=== PATIENT | female | born 1970 | race Caucasian/White ===

== ENCOUNTER 2017-01-18 16:48 | Inpatient (IN) | payer OTHER ==
[~2017-01-18] VITALS: Ht 172.7 cm; Wt 54.4 kg
[2017-01-18] MEDS ORDERED: ONDANSETRON 4 MG/2 ML VIAL IM PRN (17:30)
[2017-01-18] MEDS ORDERED: MIRALAX 17 GM POWD.PACK PO PRN (17:30)
[2017-01-18] MEDS ORDERED: LORAZEPAM 1 MG TABLET PO PRN ×2 (17:30)
[2017-01-18] MEDS ORDERED: LOPERAMIDE HCL 2 MG CAPSULE PO PRN ×2 (17:30)
[2017-01-18] MEDS ORDERED: LORAZEPAM 2 MG/1 ML VIAL IM PRN (17:30)
[2017-01-18] MEDS ORDERED: BUPRENORPHINE HCL 2 MG TAB.SUBL SL PRN (17:30)
[2017-01-18] MEDS ORDERED: diphenhydrAMINE 50 MG CAPSULE PO PRN (17:30)
[2017-01-18] MEDS ORDERED: CLONIDINE HCL 0.1 MG TABLET PO PRN (17:30)
[2017-01-18] MEDS ORDERED: IBUPROFEN 600 MG TABLET PO PRN (17:30)
[2017-01-18] MEDS ORDERED: MAG HYDROX/AL HYDROX/SIMETH 30 ML LIQUID UDC PO PRN (17:30)
--- NOTE | 2017-01-18 17:30 | NUR ---
PRE ADMISSION 46 year old female from [facility], alert and oriented x4, appears pale in color, verbally responsive, reports is here to get off of oxycodone. Patient reports first time in treatment, reports began taken oxycodone for pain mgmt due to Chrons disease. bp: 102/58 p: 109 t: 98.0 r: 16 o2 sat: 99%. Patient reports allergies to Reglan. Patient was educated regarding unit policies and procedures with good verbal understanding. Dr. Youssef aware of new admission.
--- NOTE | 2017-01-18 18:00 | NUR ---
ADMISSION Patient arrived to unit at 1800, noted with steady gait, patients body search completed by female STEEL WELDER, no contraband found. Patients body assessment completed, noted with small bruise on left A/C due to blood draws from hospitalization one week ago. Patient also with port a cath to right upper chest, placed may 2016. Patient is 5 feet 8 inches and weighs 120lbs. Patient reports past medical history of: Chrons Disease Dx: 2013, depression Dx: 25 years ago, Migraines Dx: "few years ago" , Folic Acid deficiency Dx: 2013, hypothyroidism Dx: "few years ago", bowel resection done November 16. patient reports was prescribed opiate for pain mgmt, reports taking oxycodone 200mg daily for 5 years for pain mgmt. Also was prescribed, bromazepam, unknown amount taken for 5 years. Patient reports she wants to stop taking oxycodone and bromazepam. Reports was hospitalized one week ago in the ER for Chrons disease flare up, reports has last a total of 33 pounds in the past few months, due to chrons disease. Patient brought home medications, all medications were reconciled and input into [employer]. Patient denies any history of seizures. Patient reports any family history of substance abuse. Patients abdomen is soft and non distended, reports having diarrhea. Patient reports receives Remicade infusion every 15 days. patients pupils are equal and reactive to light. Patient endorsed to slot shift supervisor nurse, all pertinent information discussed. will continue to monitor. patient was seen by Dr. Youssef and by Dr. Hines. Will continue to monitor.
[2017-01-18 18:10] LABS: *URINE HCG, QUAL NEGATIVE (NEGATIVE)
[2017-01-18] MEDS ORDERED: FOLI1TAB16 PO (18:14)
[2017-01-18] MEDS ORDERED: AMIT25TA9 PO (18:15)
[2017-01-18] MEDS ORDERED: MIRT15TA7 PO (18:16)
[2017-01-18 18:17] LABS: *AMPHETAMINE, URINE NEGATIVE (NEGATIVE); *BARBITURATE, URINE POSITIVE (NEGATIVE); *CANNABINOID, URINE NEGATIVE (NEGATIVE); *COCCAINE, URINE NEGATIVE (NEGATIVE); *OPIATE, URINE POSITIVE (NEGATIVE); *PHENCYCLIDINE SCREEN,URINE NEGATIVE (NEGATIVE)
[2017-01-18] MEDS ORDERED: TRIM300C24 PO (18:17)
[2017-01-18] MEDS ORDERED: LEVO100T10 PO (18:18)
[2017-01-18] MEDS ORDERED: PANT40TA4 PO (18:18)
[2017-01-18] MEDS ORDERED: SUMA100T PO (18:26)
[2017-01-18] MEDS ORDERED: POTA20TA83 PO (18:28)
[2017-01-18] MEDS ORDERED: GABA100C PO (18:29)
[2017-01-18] MEDS ORDERED: CETI-102 PO (18:42)
[2017-01-18] MEDS ORDERED: D-ME236L5 PO (18:42)
[2017-01-18] MEDS ORDERED: [UNRECOGNIZED DRUG - CODE] TP (18:42)
[2017-01-18] MEDS ORDERED: [UNRECOGNIZED DRUG - CODE] PO (18:42)
[2017-01-18] MEDS ORDERED: LOPE1TAB46 PO (18:42)
[2017-01-18] MEDS ORDERED: KETO5DRO29 OP (18:42)
[2017-01-18 20:00] VITALS: BP 91/52
--- NOTE | 2017-01-18 20:00 | NUR ---
Start of Shift Patient is a 46-year old, female, admitted for Opiates and Benzo Dependence. Pt is allergic to Metoclopramide, on Regular Diet and is Full Code. Pt with history of Colon Resection on 11/16/2016, Crohns Disease, Depression, Migraine, Folic Acid Deficiency, Hypothyroidism, Thyroidectomy and Insomnia. Pt is AAOx4, noted to be weak and with mild anxiety noted. Pt with steady gait and with no open skin noted. Vital signs are stable. With right upper chest Port-a-cath with no access. No seizure history reported. Placed on 5-day Ativan and 5-day Subutex tapers, to start 01/19/2017. Fall, universal, seizure and safety prec in place. Call light within reach. Latest COWS=7, CIWA=6. Will continue to monitor.
[2017-01-18] MEDS: AMITRIPTYLINE HCL 25 MG TABLET PO SCH (20:25)
[2017-01-18] MEDS: DICYCLOMINE HCL 20 MG TABLET PO PRN (20:26)
[2017-01-18] MEDS: MIRTAZAPINE 15 MG TABLET PO SCH (20:26)
--- NOTE | 2017-01-18 20:28 | NUR ---
RN note PRN Bentyl Pt c/o abdominal cramps. Administered Bentyl 20 mg PO as ordered. Will reassess.
[2017-01-18] MEDS ORDERED: LORAZEPAM 1 MG TABLET PO ONE (21:00)
--- NOTE | 2017-01-18 21:30 | NUR ---
RN note reassess Pt verbalized feeling relieved from stomach cramps.
[2017-01-19] VITALS: BP 97/54
[2017-01-19 04:00] VITALS: BP 105/56
--- NOTE | 2017-01-19 07:16 | NUR ---
End of Shift Patient is a 46-year old, female, admitted for Opiates and Benzo Dependence. Pt is allergic to Metoclopramide, on Regular Diet and is Full Code. Pt with history of Colon Resection on 11/16/2016, Crohns Disease, Depression, Migraine, Folic Acid Deficiency, Hypothyroidism, Thyroidectomy and Insomnia. Pt is AAOx4, noted to be weak and with mild anxiety noted. Pt with steady gait and with no open skin noted. Vital signs are stable. With right upper chest Port-a-cath with no access. No seizure history reported. Placed on 5-day Ativan and 5-day Subutex tapers, to start 01/19/2017. Fall, universal, seizure and safety prec in place. Call light within reach. Latest COWS=5, CIWA=4 , slept for 9 hours . Endorsed to AM shift nurse for continuity of care.
--- NOTE | 2017-01-19 07:36 | NUR ---
BEGINNING OF SHIFT Patient endorsement report received from hourly shift manager nurse, all pertinent information discussed. Patient admitted on 01/18/2017, with admitting Dx: opiate/bzo dependence. Patient with past medical history of: Colon Resection on 11/16/2016, Crohns disease Disease, Depression, Migraine, Folic Acid Deficiency, Hypothyroidism, Thyroidectomy and Insomnia. Patient scheduled to begin 5 day Ativan taper and 5 day Subutex taper as ordered, will monitor closely. Per hourly shift manager patient slept for 9 hours, with last cow score of: 5 and last ciwa score of: 4. Pending stool culture. Patient received awake, alert and oriented x4, noted to be weak, safety measures in place. patient with port a cath on right upper chest with no access. Fall and seizure precautions observed and in place. Patient was educated regarding plan of care for the day and medication regimen with good verbal understanding, will continue to monitor closely.
[2017-01-19 07:44] LABS: BASOPHILS % (AUTO) 0.9 % (0.0-2.0); EOSINOPHILS # (AUTO) 0.1 K/uL (0.0-0.7); EOSINOPHILS % (AUTO) 2.4 % (0.0-7.0); HEMOGLOBIN 10.5 G/DL (12.0-16.0); LYMPHOCYTES # (AUTO) 1.8 K/UL (0.8-4.8); LYMPHOCYTES % (AUTO) 39.3 % (20.5-51.5); MEAN CORPUSCULAR HEMOGLOBIN 31.5 UUG (27.0-31.0); MEAN CORPUSCULAR HGB CONC 35 g/dL (32.0-37.0); MONOCYTES # (AUTO) 0.4 K/UL (0.1-1.30); MONOCYTES % (AUTO) 9.6 % (0.0-11.0); NEUTROPHILS # (AUTO) 2.3 K/UL (1.8-8.9); NEUTROPHILS % (AUTO) 47.8 % (38.5-71.5); PLATELET COUNT (AUTO) 271 K/UL (150-450); RED BLOOD CELL COUNT(AUTO) 3.33 MIL/UL (4.2-5.4); WHITE BLOOD COUNT (AUTO) 4.6 K/UL (4.0-11.2)
[2017-01-19 08:00] LABS: ALANINE AMINOTRANSFERASE 44 U/L (14-59); ALKALINE PHOSPHATASE 135 U/L (50-136); ASPARTATE AMINOTRANSFERASE 59 U/L (15-37); BILIRUBIN,TOTAL 0.2 mg/dL (0.2-1.0); CARBON DIOXIDE 30 mmol/L (21-32); CHLORIDE 108 mmol/L (98-107); CREATININE 0.6 mg/dL (0.6-1.3); GLUCOSE 90 mg/dL (74-106); MAGNESIUM 1.4 mg/dL (1.8-2.4); POTASSIUM 3.1 mmol/L (3.5-5.1); TOTAL PROTEIN, SERUM 5.1 g/dL (6.4-8.2); UREA NITROGEN, BLOOD 9 mg/dL (7-18)
[2017-01-19 08:10] LABS: ETHANOL < 3 MG/DL (0-0)
[2017-01-19 08:15] VITALS: BP 98/65
[2017-01-19] MEDS: LORAZEPAM 1 MG TABLET PO SCH ×4 (08:18→21:26)
[2017-01-19] MEDS: BUPRENORPHINE HCL 2 MG TAB.SUBL SL SCH ×4 (08:19→21:25)
[2017-01-19] MEDS: DICYCLOMINE HCL 20 MG TABLET PO PRN ×2 (08:19→14:34)
--- NOTE | 2017-01-19 08:19 | NUR ---
PRN BENTYL Patient c/o stomach cramps, r/t Crohns Disease, patient administered Bentyl as ordered, will monitor effectiveness of medication.
[2017-01-19] MEDS: PANTOPRAZOLE 40MG PO SCH (08:20)
[2017-01-19] MEDS: LEVOTHYROXINE 100 MCG PO SCH (08:20)
[2017-01-19] MEDS: GABAPENTIN 100MG PO SCH ×3 (08:20→17:11)
[2017-01-19] MEDS ORDERED: TUBERCULIN,PURIF.PROT.DERIV. 5 TU/0.1 ML TEST ID ONE (09:00)
[2017-01-19] MEDS ORDERED: FOLIC ACID 1MG PO SCH (09:00)
--- NOTE | 2017-01-19 09:19 | NUR ---
BENTYL REASSESSMENT Patient reports medication effective at reducing stomach cramps, will continue to monitor.
[2017-01-19] MEDS: SUMATRIPTAN 100 MG PO PRN (11:01)
--- NOTE | 2017-01-19 11:01 | NUR ---
PRN SUMATRIPTAN Patient c/o 11/25 migraine, provided with non pharmacological interventions with no relief, administered sumatriptan as ordered, will monitor effectiveness of medication.
--- NOTE | 2017-01-19 12:01 | NUR ---
SUMATRIPTAN REASSESSMENT Patient reports medication with relief, current migraine level 3/10, tolerable as per patient, encouraged patient adequate PO fluid intake as tolerated. will continue to monitor closely.
[2017-01-19 13:05] VITALS: BP 99/64
[2017-01-19] MEDS: ONDANSETRON ODT 4 MG TAB.RAPDIS SL PRN (14:36)
--- NOTE | 2017-01-19 14:36 | NUR ---
PRN ZOFRAN Patient c/o increase nausea, no episodes of emesis noted. Patient administered Zofran 4mgSL as ordered, will monitor effectiveness of medication.
--- NOTE | 2017-01-19 14:36 | NUR ---
PRN BENTYL Patient c/o stomach cramps, r/t Crohns Disease, patient administered Bentyl as ordered, will monitor effectiveness of medication.
--- NOTE | 2017-01-19 15:36 | NUR ---
ZOFRAN REASSESSMENT Patient reports medication effective at reducing nausea, will continue to monitor.
--- NOTE | 2017-01-19 15:36 | NUR ---
BENTYL REASSESSMENT Patient reports medication effective at reducing stomach cramps, will continue to monitor.
[2017-01-19 16:30] VITALS: BP 99/61
[2017-01-19] MEDS ORDERED: MAGNESIUM OXIDE 400 MG TABLET PO ONE ×2 (17:00→21:00)
[2017-01-19] MEDS ORDERED: POTASSIUM CHLORIDE 20 MEQ TAB.PRT.SR PO ONE (17:00)
[2017-01-19] MEDS: METHOCARBAMOL 750 MG TABLET PO PRN (17:18)
--- NOTE | 2017-01-19 17:18 | NUR ---
PRN ROBAXIN Patient reports muscle aches 08/25, provided with non pharmacological interventions with no relief, administered Robaxin as ordered, will monitor effectiveness.
--- NOTE | 2017-01-19 18:18 | NUR ---
ROBAXIN REASSESSMENT Patient reports medication effective, decrease in muscle aches. 04/27, tolerable as per patient, will continue to monitor.
--- NOTE | 2017-01-19 18:55 | NUR ---
END OF SHIFT Patient alert and orientedx4, compliant with therapeutic plan of care, patient with admitting Dx: opiate/bzo dependence. Patient continues on 5 day Ativan taper and 5 day Subutex taper as ordered and is currently on day 1 of taper, well tolerated, no ASE noted. Patient 0900 assessment presented with: heart rate of 98, c/o chills, dilated pupils, mild bone and joint aches, moist eyes, stomach cramps, yawning, goosebump, and mild agitation with cow score of: 11 and ciwa score of: 4; 1300 assessment patient presented with: heart rate of 89, c/o chills, dilated pupils moist eyes, stomach cramps, yawning and mild anxiety with cow score of: 8 and ciwa score of: 2; 1700 assessment patient presented with: heart rate of 90, c/o chills, dilated pupils, mild bone and joint aches, moist eyes, stomach cramps, anxiety, and mild agitation with cow score of: 8 and 5. During shift stool culture collected and taken to lab. Potassium and Magnesium were replaced during shift as ordered by MD. Patient was encouraged adequate PO fluid intake as tolerated. Encouraged to attend group therapies/sessions to learn new coping skills to prevent relapse, denies any SI/HI. Patient received PRN: Robaxin, Zofran, Bentyl x2 and tumatriptan during shift. Patients safety measures in place. Call light kept with in reach. Endorsed to hourly shift manager nurse, all pertinent information discussed. Will continue to monitor.
--- NOTE | 2017-01-19 19:30 | NUR ---
START OF SHIFT Patient is a 46-year old, female, admitted for Opiates and Benzo Dependence. Pt is allergic to Metoclopramide, on Regular Diet and is Full Code. Pt with history of Colon Resection, Crohns Disease, Depression, Migraine, Folic Acid Deficiency, Hypothyroidism, Thyroidectomy and Insomnia. Pt is A/O X 4,received resting in bed;breathing even and non labored .Pt has right upper chest Port-a-cath with no access. No seizure history reported. Pt continues on 5-day Ativan and 5-day Subutex tapers as ordered and is tolerating well. On fall and seizure precautions;all safety measures in place, call light within reach. Latest COWS=8, CIWA=5 .Per report,stool culture was collected and taken to lab. Potassium and Magnesium were replaced as ordered by MD.Pt is compliant with medications and care;PO fluids encouraged as tolerated,will continue to monitor.
[2017-01-19 20:00] VITALS: BP 111/62
[2017-01-19] MEDS ORDERED: POTASSIUM CHLORIDE 10 MEQ CAPSULE.SA PO ONE (21:00)
[2017-01-19] MEDS ORDERED: MAGNESIUM OXIDE 400 MG TABLET ONE (21:12)
[2017-01-19] MEDS ORDERED: POTASSIUM CHLORIDE 10 MEQ CAPSULE.SA ONE (21:12)
[2017-01-19] MEDS: DICYCLOMINE HCL 20 MG TABLET PO SCH (21:24)
[2017-01-19] MEDS: MIRTAZAPINE 15 MG TABLET PO SCH (21:25)
[2017-01-19] MEDS: AMITRIPTYLINE HCL 25 MG TABLET PO SCH (21:27)
[2017-01-20] VITALS: BP 103/56
[2017-01-20] MEDS: SUMATRIPTAN 100 MG PO PRN ×2 (02:28→09:12)
[2017-01-20] MEDS: TIGER BALM TOP PRN ×2 (02:29→09:12)
--- NOTE | 2017-01-20 02:30 | NUR ---
PRN MEDS SUMATRIPTAN GIVEN ORDERED FOR MIGRAINE HEADACHE,10/25 AND TIGER BALM GIVEN FOR NECK AND SHOULDER PAIN,07/25.WILL MONITOR FOR EFFECTIVENESS.
--- NOTE | 2017-01-20 03:30 | NUR ---
PRN F/U PT IS IN DEEP SLEEP,BREATHING IS EVEN AND NON LABORED,NO S/S OF DISTRESS NOTED,UNABLE TO ASSESS FOR PRN MEDS EFFECTIVENESS AT THIS TIME.WILL CONTINUE TO MONITOR.
[2017-01-20 04:00] VITALS: BP 105/61
--- NOTE | 2017-01-20 06:34 | NUR ---
END OF SHIFT Patient is a 46-year old, female, admitted for Opiates and Benzo Dependence. Pt is allergic to Metoclopramide, on Regular Diet and is Full Code. Pt with history of Colon Resection, Crohns Disease, Depression, Migraine, Folic Acid Deficiency, Hypothyroidism, Thyroidectomy and Insomnia. Pt is A/O X 4.Pt has right upper chest Port-a-cath with no access. No seizure history reported. Pt continues on 5-day Ativan and 5-day Subutex tapers as ordered and is tolerating well. On fall and seizure precautions;all safety measures in place, call light within reach. Latest COWS=4, CIWA=3 .Stool culture report still pending.PRN [place] balm and Sumatriptan were given and were effective.Pt slept 7 hrs,fluid intake was 1478 mls,voided x 3 .Pt is using DVT pumps as needed.Pt is compliant with medications and care;PO fluids encouraged as tolerated,will continue to monitor.
--- NOTE | 2017-01-20 07:52 | NUR ---
BEGINNING OF SHIFT Patient endorsement report received from scientific illustrator nurse, all pertinent information discussed. Patient admitted on 01/18/2017, with admitting Dx: opiate/bzo dependence. Patient with past medical history of: Colon Resection on 11/16/2016, Crohns disease Disease, Depression, Migraine, Folic Acid Deficiency, Hypothyroidism, Thyroidectomy and Insomnia. Patient continues on 5 day Ativan taper and 5 day Subutex taper as ordered, patient is scheduled to begin day 2 of taper will monitor closely. Per scientific illustrator patient slept for 7 hours, with last cow score of: 4 and last ciwa score of: 3. Per scientific illustrator patient received PRN: sumatriptan, and tiger balm as ordered. Pending stool culture. Patient received awake, alert and oriented x4, noted to be weak, safety measures in place. patient with port a cath on right upper chest with no access. Fall and seizure precautions observed and in place. Patient was educated regarding plan of care for the day and medication regimen with good verbal understanding, will continue to monitor closely.
[2017-01-20 09:06] LABS: HEPATITIS B SURFACE AG Negative (Negative)
[2017-01-20 09:10] VITALS: BP 95/60
[2017-01-20] MEDS: DICYCLOMINE HCL 20 MG TABLET PO SCH ×3 (09:11→20:11)
[2017-01-20] MEDS: BUPRENORPHINE HCL 2 MG TAB.SUBL SL SCH ×3 (09:11→20:13)
[2017-01-20] MEDS: FOLIC ACID 1 MG TABLET PO SCH (09:11)
[2017-01-20] MEDS: LORAZEPAM 1 MG TABLET PO SCH ×3 (09:11→20:12)
--- NOTE | 2017-01-20 09:12 | NUR ---
PRN SUMATRIPTAN Patient c/o 11/25 migraine, provided with non pharmacological interventions with no relief, administered sumatriptan as ordered, will monitor effectiveness of medication.
[2017-01-20] MEDS: LEVOTHYROXINE 100 MCG PO SCH (09:13)
[2017-01-20] MEDS: PANTOPRAZOLE 40MG PO SCH (09:13)
[2017-01-20] MEDS: GABAPENTIN 100MG PO SCH ×3 (09:14→17:28)
--- NOTE | 2017-01-20 10:12 | NUR ---
SUMATRIPTAN REASSESSMENT Patient reports medication with relief, current migraine level 2/10, tolerable as per patient, encouraged patient adequate PO fluid intake as tolerated. will continue to monitor closely.
[2017-01-20] MEDS: METHOCARBAMOL 750 MG TABLET PO PRN (11:09)
[2017-01-20] MEDS: DICYCLOMINE HCL 20 MG TABLET PO PRN (11:09)
[2017-01-20] MEDS: ACETAMINOPHEN 325 MG TABLET PO PRN (11:10)
[2017-01-20] MEDS: ONDANSETRON ODT 4 MG TAB.RAPDIS SL PRN (11:13)
--- NOTE | 2017-01-20 11:13 | NUR ---
PRN ZOFRAN/BENTYL/ROBAXIN/TYLENOL Patient c/o increase nausea, no vomiting noted, c/o stomach cramps, and muscle aches, pain level of 9/10. patient provided with non pharmacological interventions with no relief, administered Zofran 4mgSL, Robaxin 750mg PO, Bentyl 20mg PO, and Tylenol 650mg PO as ordered, will monitor effectiveness of medications.
--- NOTE | 2017-01-20 12:13 | NUR ---
ZOFRAN/BENTYL/ROBAXIN/TYLENOL REASSESSMENT Patient reports all medications were effective, reports feeling less nausea and current pain level of 2/10, medications effective. safety measures in place. call light with in reach, will continue to monitor closely.
[2017-01-20 12:30] VITALS: BP 105/67
[2017-01-20] MEDS ORDERED: BUPRENORPHINE HCL 2 MG TAB.SUBL SL ONE (13:30)
[2017-01-20] MEDS ORDERED: DICYCLOMINE HCL 20 MG/2 ML AMPUL IM PRN (13:30)
[2017-01-20 17:02] VITALS: BP 101/61
--- NOTE | 2017-01-20 17:22 | NUR ---
PRN BENTYL IM Patient c/o severe abdominal cramps secondary to DX: Crohns disease. Patient provided with non pharmacological interventions, with no relief, administered IM Bentyl 20mg as ordered, will monitor effectiveness of medication.
--- NOTE | 2017-01-20 18:48 | NUR ---
START OF SHIFT NOTE: Patient is a 46 year old female admitted to [facility] on 01/18/2017 for Oxycodone and Bromazepam dependence continue 5 Day Ativan and 5 Day Subutex Taper. Patient tolerated well without ASE. Patient remains compliant with treatment, medications, and diet regime. Patient reports allergy to Metoclopramide. Patient is on Full Code, Regular Diet, Fall Precautions. Patient denies Seizures History. Patient reports Past Medical History: Anxiety, Depression, Colon Resection in [place] (11/22/2016), Crohn's Disease, Migraine, HTN, Thyroidectomy with Pod-a-cath Right Upper Chest, Folic Acid Deficiency, Insomnia, History of x3 withdrawal-induced seizures withdrawal. Patient reports substance use history: "Oxycodone 200 mg PO every day since 2011. Last used 100 mg PO on 01/18/2017"; "Bromazepam unknown amount since 2011. Last used unknown amount on 01/18/2017". Patient reports history of recent Hospitalization/Treatment: "[facility]", [facility] (01/16/2017), [facility] x27 days (01/11/2017)". MRSA from nares collected and sent to lab, as ordered. Upon endorsement, patient is resting in her room. COWS 9, CIWA 6. VS: T: 98'4, BP: 97/62, HR: 95, RR: 16, RA O2Sat: 97%, Stomach pain level: "8/10". Respirations unlabored and even. Lung Sounds are clear throughout. Abdomen is soft. Bowel Sounds are active in all 4 quadrants. Skin is intact, warm, and dry to touch. DVT pumps in place as ordered. All needs met. All safety measures in place: Call light within reach, bed in lowest position and locked, padded rails up x2. Will continue to monitor closely. Addendum: 01/20/17 at 2208 by ZIGGY MIKHAYLOVA RN Patient denies SI/HI. Encouraged to fluid intake as tolerated. Encouraged group activities to attend.
--- NOTE | 2017-01-20 18:48 | NUR ---
END OF SHIFT Patient alert and orientedx4, compliant with therapeutic plan of care, patient with admitting Dx: opiate/bzo dependence. Patient continues on 5 day Ativan taper and 5 day Subutex taper as ordered and is currently on day 2 of taper, well tolerated, no ASE noted. Patient 0900 assessment presented with: heart rate of 93, c/o chills, dilated pupils, mild bone and joint aches, stomach cramps, and mild anxiety with ciwa score of: 3; 1300 assessment patient presented with: heart rate of 94, c/o chills, dilated pupils, mild bone and joint aches, stomach cramps, and mild anxiety with ciwa score of: 3. 1700 assessment patient presented with: heart rate of 91, c/o chills, dilated pupils, mild bone and joint aches, stomach cramps, and mild anxiety with ciwa score of: 3. During shift patient was administered extra dose of Subutex 2mg sl as per MD ordered, well tolerated. Patient was encouraged adequate PO fluid intake as tolerated, noted with increase in appetite, encouraged adequate meal intake. Encouraged to attend group therapies/sessions to learn new coping skills to prevent relapse, denies any SI/HI. Patient received PRN: Tylenol, Robaxin, Zofran, Bentyl x2 and tumatriptan during shift. Patients safety measures in place. Call light kept with in reach. Endorsed to fast food shift lead nurse, all pertinent information discussed. Will continue to monitor.
[2017-01-20 20:00] VITALS: BP 97/62
[2017-01-20] MEDS: AMITRIPTYLINE HCL 25 MG TABLET PO SCH (20:12)
[2017-01-20] MEDS: MIRTAZAPINE 15 MG TABLET PO SCH (20:12)
[2017-01-21] VITALS: BP 103/51
[2017-01-21 04:00] VITALS: BP 93/53
[2017-01-21] MEDS: SUMATRIPTAN 100 MG PO PRN ×2 (05:32→10:09)
--- NOTE | 2017-01-21 05:32 | NUR ---
PRN SUMATRIPTAN 100 MG 1 TAB PO ADMINISTRATION Patient c/o migraine. VS: T: 98'5, BP 93/53, HR 92, T 97.9, RR 19, RA O2Sat 94%, pain level:"810". PRN Sumatriptan 100 mg 1 tab PO administrated for anxiety as ordered with full glass of water. Patient tolerated well. All needs met. Safety measures on place. Call light within reach, bed in lowest position and locked, padded rails up bilaterally. Will continue to monitor closely. Addendum: 01/21/17 at 0551 by ZIGGY HOWE RN PRN Sumatriptan 100 mg 1 tab PO administrated for migraine as ordered with full glass of water.
--- NOTE | 2017-01-21 06:32 | NUR ---
RE-ASSESSMENT Patient is sleeping. Respirations even and unlabored. RR 16. PRN Sumatriptan 100 mg 1 tab PO administrated for migraine @0532 was effective. All needs met. Safety measures on place. Call light within reach, bed in lowest position and locked, padded rails up bilaterally rails up bilaterally. Will continue to monitor closely.
--- NOTE | 2017-01-21 06:54 | NUR ---
END OF SHIFT NOTE: Patient is a 46 year old female admitted to [facility] on 01/18/2017 for Oxycodone and Bromazepam dependence continue 5 Day Ativan and 5 Day Subutex Taper. Patient tolerated well without ASE. Patient remains compliant with treatment, medications, and diet regime. Patient reports allergy to Metoclopramide. Patient is on Full Code, Regular Diet, Fall Precautions. Patient denies Seizures History. Patient reports Past Medical History: Anxiety, Depression, Colon Resection in [place] (11/22/2016), Crohn's Disease, Migraine, HTN, Thyroidectomy with Pod-a-cath Right Upper Chest, Folic Acid Deficiency, Insomnia, History of x3 withdrawal-induced seizures withdrawal. Patient reports substance use history: "Oxycodone 200 mg PO every day since 2011. Last used 100 mg PO on 01/18/2017"; "Bromazepam unknown amount since 2011. Last used unknown amount on 01/18/2017". Last COWS 8 @0400, CIWA 5 @0400. COWS/CIWA taken when patient's awake during night. Last VS @0400: T: 98'5, BP 93/53, HR 92, RR 14, RA O2Sat 94%, migraine pain level: "8/10". Patient denies SI/HI. Respirations unlabored and even. Skin is intact, warm and dry to touch. PRN administrated last grape picker. Patient slept 11 hours, intake 855 ml, voided x2, stool x1. PRN Sumatriptan 100 mg 1 tab PO administrated for migraine@0532 and was effective. Encouraged fluids intake as tolerated. Encouraged to attend groups activities. All needs met. Safety measures on place. Call light within reach, bed in lowest position and locked, padded rails up bilaterally. Patient endorsed to day shift nurse. Report given.
--- NOTE | 2017-01-21 07:40 | NUR ---
START OF SHIFT Pt is a 46 yr old female, AA&Ox4. Pt was admitted on 01/18/17 for Opiate/Benzo Dependence and is on 5 day Ativan and 5 day Subutex taper as ordered. Medication shanice well. Received report from gaming director nurse. Pt received Sumatriptan PRN for Migraine. Medication was effective. Pt slept for 11 hrs durign the night. Last COWS score was 8 and CIWA score was 5 at 0400. Pt is c/o headache 6/10 during rounds but states headache is subsiding. Pt is noted with both hand non-pitted edema and both feet +1 pitted edema. Will f/u with MD. Pt is c/o abdominal pain. Pt denies any n/v at this time. Safety precautions observed. Call light is within reach. Will continue to monitor.
[2017-01-21 08:00] VITALS: BP 96/56
[2017-01-21 08:11] LABS: BASOPHILS % (AUTO) 0.6 % (0.0-2.0); EOSINOPHILS # (AUTO) 0.1 K/uL (0.0-0.7); EOSINOPHILS % (AUTO) 2.7 % (0.0-7.0); HEMOGLOBIN 10.4 G/DL (12.0-16.0); LYMPHOCYTES # (AUTO) 1.6 K/UL (0.8-4.8); LYMPHOCYTES % (AUTO) 32.1 % (20.5-51.5); MEAN CORPUSCULAR HEMOGLOBIN 30.3 UUG (27.0-31.0); MEAN CORPUSCULAR HGB CONC 34 g/dL (32.0-37.0); MEAN CORPUSCULAR VOLUME 90.3 FL (81.0-99.0); MONOCYTES # (AUTO) 0.3 K/UL (0.1-1.30); MONOCYTES % (AUTO) 7.1 % (0.0-11.0); NEUTROPHILS # (AUTO) 2.9 K/UL (1.8-8.9); NEUTROPHILS % (AUTO) 57.5 % (38.5-71.5); PLATELET COUNT (AUTO) 277 K/UL (150-450); RED BLOOD CELL COUNT(AUTO) 3.43 MIL/UL (4.2-5.4); WHITE BLOOD COUNT (AUTO) 4.9 K/UL (4.0-11.2)
[2017-01-21] MEDS ORDERED: BUPRENORPHINE HCL 2 MG TAB.SUBL SL SCH (09:00)
[2017-01-21 09:01] LABS: ALANINE AMINOTRANSFERASE 49 U/L (14-59); ALKALINE PHOSPHATASE 125 U/L (50-136); ASPARTATE AMINOTRANSFERASE 50 U/L (15-37); BILIRUBIN,DIRECT < 0.1 mg/dL (0.0-0.2); BILIRUBIN,TOTAL 0.2 mg/dL (0.2-1.0); CARBON DIOXIDE 31 mmol/L (21-32); CHLORIDE 108 mmol/L (98-107); CREATININE 0.4 mg/dL (0.6-1.3); GLUCOSE 92 mg/dL (74-106); POTASSIUM 3.6 mmol/L (3.5-5.1); TOTAL PROTEIN, SERUM 5.1 g/dL (6.4-8.2); UREA NITROGEN, BLOOD 11 mg/dL (7-18)
[2017-01-21] MEDS: LORAZEPAM 1 MG TABLET PO SCH ×3 (09:04→20:58)
[2017-01-21] MEDS: DICYCLOMINE HCL 20 MG TABLET PO SCH ×4 (09:04→21:00)
[2017-01-21] MEDS: FOLIC ACID 1 MG TABLET PO SCH (09:04)
[2017-01-21] MEDS: GABAPENTIN 100MG PO SCH (09:05)
[2017-01-21] MEDS: PANTOPRAZOLE 40MG PO SCH (09:05)
[2017-01-21] MEDS: LEVOTHYROXINE 100 MCG PO SCH (09:05)
[2017-01-21 09:55] LABS: IRON, SERUM 36 ug/dL (50-175)
[2017-01-21] MEDS: ONDANSETRON ODT 4 MG TAB.RAPDIS SL PRN (09:58)
[2017-01-21] MEDS: ACETAMINOPHEN 325 MG TABLET PO PRN (09:58)
[2017-01-21] MEDS: METHOCARBAMOL 750 MG TABLET PO PRN (09:58)
--- NOTE | 2017-01-21 09:59 | NUR ---
PRN GIVEN Pt is c/o feeling nauseas. Pt denies any episodes of vomiting. Zofran 4mg SL PRN was given. Encouraged increase fluid intake. Will continue to monitor.
--- NOTE | 2017-01-21 10:09 | NUR ---
PRN GIVEN Pt is c/o severe migraine. Dr. Youssef was made aware and ok to give Sumatriptan 100mg PRN. Sumatriptan 100gm PO PRN was given as ordered. Medication shanice well. Will continue to monitor.
[2017-01-21 10:25] LABS: MAGNESIUM 1.4 mg/dL (1.8-2.4)
--- NOTE | 2017-01-21 11:00 | NUR ---
PRN-REASSESSMENT Zofran PRN and Sumatriptan PRN was effective. Encouraged pt to drink plenty of fluids. Pt still c/o migraine but pain level subsided. Will continue to monitor.
[2017-01-21 12:00] VITALS: BP 103/57
[2017-01-21] MEDS: predniSONE 20 MG TABLET PO SCH (13:48)
[2017-01-21] MEDS: GABAPENTIN 300 MG CAPSULE PO SCH ×2 (15:06→20:59)
[2017-01-21] MEDS: BUPRENORPHINE HCL 2 MG TAB.SUBL SL SCH ×2 (15:06→20:59)
--- NOTE | 2017-01-21 15:40 | NUR ---
ENDORSEMENT GIVEN Endorse pt to RN nurse to continue with care.
--- NOTE | 2017-01-21 15:45 | NUR ---
ASSUMED CARE OF PT. WILL CONTINUE TO MONITOR.
[2017-01-21 16:00] VITALS: BP 126/63
--- NOTE | 2017-01-21 18:35 | NUR ---
END OF SHIFT; ASSUMED CARE OF PT THIS AFTERNOON. PRIMARY NURSE EARLIER IN DAY GAVE PRN ZOFRAN AND IMITREX TO RELIEVE NAUSEA AND MIGRAINE AND EFFECTIVE. PT EATS SMALL AMOUNTS AT MEAL TIMES.LAST COWS 5 CIWA 4. SHE ATTENDED A GROUP TODAY AND STATES SHE WILL ATTEND H&I TONIGHT. WILL PASS SHIFT REPORT TO ONCOMING NIGHT NURSE.
--- NOTE | 2017-01-21 19:30 | NUR ---
START OF SHIFT Patient is a 46-year old, female, admitted for Opiates and Benzo Dependence. Pt is allergic to Metoclopramide, on Regular Diet and is Full Code. Pt with history of Colon Resection, Crohns Disease, Depression, Migraine, Folic Acid Deficiency, Hypothyroidism, Thyroidectomy and Insomnia. Pt is A/O X 4,received resting in bed;breathing even and non labored .Pt has right upper chest Port-a-cath with no access. No seizure history reported. Pt continues on 5-day Ativan and 5-day Subutex tapers as ordered and is tolerating well. On fall and seizure precautions;all safety measures in place, call light within reach. Latest COWS=5 CIWA=4.Pt is compliant with medications and care;PO fluids encouraged as tolerated,will continue to monitor.
[2017-01-21 20:00] VITALS: BP 109/64
[2017-01-21] MEDS ORDERED: MAGNESIUM OXIDE 400 MG TABLET PO ONE (20:00)
[2017-01-21] MEDS: MIRTAZAPINE 15 MG TABLET PO SCH (20:59)
[2017-01-21] MEDS: AMITRIPTYLINE HCL 25 MG TABLET PO SCH (20:59)
[2017-01-22] VITALS: BP 94/52
--- NOTE | 2017-01-22 04:00 | NUR ---
V/S REFUSED;COWS/CIWA DEFERRED. PT IS IN DEEP SLEEP,REFUSED V/S.COWS/CIWA DEFERRED D/T SLEEP.
--- NOTE | 2017-01-22 06:53 | NUR ---
END OF SHIFT Patient is a 46-year old, female, admitted for Opiates and Benzo Dependence. Pt is allergic to Metoclopramide, on Regular Diet and is Full Code. Pt with history of Colon Resection, Crohns Disease, Depression, Migraine, Folic Acid Deficiency, Hypothyroidism, Thyroidectomy and Insomnia.Pt has right upper chest Port-a-cath with no access. No seizure history reported. Pt continues on 5-day Ativan and 5-day Subutex tapers as ordered and is tolerating well. On fall and seizure precautions;all safety measures in place, call light within reach. Latest COWS=4 CIWA=3.No PRN meds given last night; pt slept 7 hrs,fluid intake was 355 mls,voided x 2.Pt is compliant with medications and care;PO fluids encouraged as tolerated,will continue to monitor.
--- NOTE | 2017-01-22 07:32 | NUR ---
BEGINNING OF SHIFT Patient endorsement report received from retail shift supervisor nurse, all pertinent information discussed. Patient admitted on 01/18/2017, with admitting Dx: opiate/bzo dependence. Patient with past medical history of: Colon Resection on 11/16/2016, Crohns disease Disease, Depression, Migraine, Folic Acid Deficiency, Hypothyroidism, Thyroidectomy and Insomnia. Patient continues on 5 day Ativan taper and 5 day Subutex taper as ordered, patient is scheduled to begin day 4 of taper will monitor closely. Per retail shift supervisor patient slept for 7 hours, with last cow score of: 4 and last ciwa score of: 3. Per retail shift supervisor patient received no PRNs Patient received awake, alert and oriented x4, safety measures in place. patient with port a cath on right upper chest with no access. Fall and seizure precautions observed and in place. Patient was educated regarding plan of care for the day and medication regimen with good verbal understanding, will continue to monitor closely.
[2017-01-22 08:13] VITALS: BP 90/62
[2017-01-22] MEDS: FOLIC ACID 1 MG TABLET PO SCH (08:37)
[2017-01-22] MEDS: FERROUS SULFATE 325 MG TABEC PO SCH ×2 (08:37→21:08)
[2017-01-22] MEDS: GABAPENTIN 300 MG CAPSULE PO SCH ×3 (08:37→21:07)
[2017-01-22] MEDS: ASCORBIC ACID 250 MG TABLET PO SCH (08:37)
[2017-01-22] MEDS: SUMATRIPTAN 100 MG PO PRN (08:37)
[2017-01-22] MEDS: LORAZEPAM 1 MG TABLET PO SCH ×2 (08:37→21:08)
[2017-01-22] MEDS: DICYCLOMINE HCL 20 MG TABLET PO SCH ×4 (08:38→21:07)
[2017-01-22] MEDS: BUPRENORPHINE HCL 2 MG TAB.SUBL SL SCH ×3 (08:38→21:08)
[2017-01-22] MEDS: predniSONE 20 MG TABLET PO SCH (08:38)
[2017-01-22] MEDS: PANTOPRAZOLE 40MG PO SCH (08:38)
[2017-01-22] MEDS: LEVOTHYROXINE 100 MCG PO SCH (08:38)
--- NOTE | 2017-01-22 08:38 | NUR ---
PRN SUMATRIPTAN Patient c/o 11/25 migraine, provided with non pharmacological interventions with no relief, administered sumatriptan as ordered, will monitor effectiveness of medication.
--- NOTE | 2017-01-22 09:30 | NUR ---
EDEMA +2/MD COMMUNICATION Patient notified patient noted with +2 edema to bilateral hands and bilateral lower extremities, MD is aware. patient encouraged to keep extremities elevated. denies pain/discomfort. safety measures in place. will continue to monitor closely.
[2017-01-22 12:16] VITALS: BP 106/61
[2017-01-22] MEDS: METHOCARBAMOL 750 MG TABLET PO PRN (12:47)
--- NOTE | 2017-01-22 12:47 | NUR ---
PRN ROBAXIN Patient reports muscle aches 08/25, provided with non pharmacological interventions with no relief, administered Robaxin as ordered, will monitor effectiveness.
--- NOTE | 2017-01-22 13:47 | NUR ---
ROBAXIN REASSESSMENT Patient reports medication effective, decrease in muscle aches. 04/27, tolerable as per patient, will continue to monitor.
[2017-01-22 17:00] VITALS: BP 92/60
--- NOTE | 2017-01-22 19:16 | NUR ---
END OF SHIFT Patient alert and orientedx4, Dx: eoth/BZO dependence. Patient Started on a 5 day Ativan taper as ordered, well tolerated, no ASE noted. During shift patient with multiple episodes of increase anxiety, agitation, and noted with auditory and visual hallucinations. Patient with 1: 1 sitter at bedside for safety precautions, during shift administered one time doses of Ativan 2mg IM at: 1028, 1402, and 1537. Patient was also administered one time dose of: Benadryl 50mg IM, and clonidine 0.1mg PO at 1537. 1300 assessment patient presented with: anxiety, agitation, irritable, auditory and visual hallucinations, heart rate of 103, difficulty sitting still with ciwa score of: 10 and cow score of: 5. Unable to assess 1700 cow/ciwa score, due to patient sleeping. While awake, Patient was encouraged adequate PO fluid intake as tolerated. Encouraged to attend group therapies/sessions to learn new coping skills to prevent relapse, during shift patient was assessed by write, denies any SI/HI. Patients safety measures in place. Call light kept with in reach. Endorsed to shift mechanic nurse, all pertinent information discussed. Will continue to monitor. Addendum: 01/22/17 at 1918 by LUCY REDDY LVN CLARIFICATION: NOTE ABOVE IS INCORRECT WRONG PATIENT
--- NOTE | 2017-01-22 19:18 | NUR ---
END OF SHIFT Patient alert and orientedx4, compliant with therapeutic plan of care, patient with admitting Dx: opiate/bzo dependence. Patient continues on 5 day Ativan taper and 5 day Subutex taper as ordered and is currently on day 3 of taper, well tolerated, no ASE noted. Patient 0900 assessment presented with: heart rate of 86, stomach cramps, mild anxiety, mild agitation with ciwa score of: 2, and cow score of: 4; 1300 assessment patient presented with: heart rate of 98, stomach cramps, mild anxiety, mild agitation, and mild bone and joint aches with cow score of: 4 and ciwa score of: 2; 1700 assessment paint presented with: heart rate of: 93, stomach cramps, mild anxiety, mild bone and joint aches, and mild agitation with cow score of: 4 and ciwa score of: 2. Patient was encouraged adequate PO fluid intake as tolerated, noted with increase in appetite, encouraged adequate meal intake. Encouraged to attend group therapies/sessions to learn new coping skills to prevent relapse, denies any SI/HI. Patient received PRN: Robaxin, and Sumatriptan during shift. Patients safety measures in place. Call light kept with in reach. Endorsed to gas appliance mechanic nurse, all pertinent information discussed. Will continue to monitor.
--- NOTE | 2017-01-22 19:30 | NUR ---
START OF SHIFT Patient is a 46-year old, female, admitted for Opiates and Benzo Dependence. Pt is allergic to Metoclopramide, on Regular Diet and is Full Code. Pt with history of Colon Resection, Crohns Disease, Depression, Migraine, Folic Acid Deficiency, Hypothyroidism, Thyroidectomy and Insomnia. Pt is A/O X 4,received resting in bed,watching TV;breathing even and non labored .Pt has right upper chest Port-a-cath with no access. No seizure history reported. Pt continues on 5-day Ativan and 5-day Subutex tapers as ordered and is tolerating well. On fall and seizure precautions;all safety measures in place, call light within reach. Last COWS=4 CIWA=2.Pt denies any c/o pain,n/v/d at this time.Pt is compliant with medications and care;PO fluids encouraged as tolerated,will continue to monitor.
[2017-01-22 20:00] VITALS: BP 103/62
[2017-01-22] MEDS: AMITRIPTYLINE HCL 25 MG TABLET PO SCH (21:08)
[2017-01-22] MEDS: MIRTAZAPINE 15 MG TABLET PO SCH (21:08)
[2017-01-23] VITALS: BP 98/50
[2017-01-23 04:00] VITALS: BP 91/50
--- NOTE | 2017-01-23 06:41 | NUR ---
END OF SHIFT Patient is a 46-year old, female, admitted for Opiates and Benzo Dependence. Pt is allergic to Metoclopramide, on Regular Diet and is Full Code. Pt with history of Colon Resection, Crohns Disease, Depression, Migraine, Folic Acid Deficiency, Hypothyroidism, Thyroidectomy and Insomnia. Pt is A/O X 4,received resting in bed,watching TV;breathing even and non labored .Pt has right upper chest Port-a-cath with no access. No seizure history reported. Pt continues on 5-day Ativan and 5-day Subutex tapers as ordered and is tolerating well. On fall and seizure precautions;all safety measures in place, call light within reach. Last COWS=3 CIWA=1.No PRN meds given last night;pt slept 7 hrs,fluid intake was 855 mls,voided x 2.Pt is compliant with medications and care;PO fluids encouraged as tolerated,will continue to monitor.
--- NOTE | 2017-01-23 07:26 | NUR ---
BEGINNING OF SHIFT Patient endorsement report received from material handler 1st shift nurse, all pertinent information discussed. Patient admitted on 01/18/2017, with admitting Dx: opiate/bzo dependence. Patient with past medical history of: Colon Resection on 11/16/2016, Crohns disease Disease, Depression, Migraine, Folic Acid Deficiency, Hypothyroidism, Thyroidectomy and Insomnia. Patient continues on 5 day Ativan taper and 5 day Subutex taper as ordered, patient is scheduled to begin day 5 of taper will monitor closely. Per material handler 1st shift patient slept for 7 hours, with last cow score of: 3 and last ciwa score of: 1. Per material handler 1st shift patient received no PRNs Patient received awake, alert and oriented x4, safety measures in place. patient with port a cath on right upper chest with no access. Fall and seizure precautions observed and in place. Patient was educated regarding plan of care for the day and medication regimen with good verbal understanding, will continue to monitor closely.
[2017-01-23 08:02] VITALS: BP 92/60
[2017-01-23] MEDS: predniSONE 20 MG TABLET PO SCH (08:38)
[2017-01-23] MEDS: GABAPENTIN 300 MG CAPSULE PO SCH ×3 (08:38→20:03)
[2017-01-23] MEDS: FOLIC ACID 1 MG TABLET PO SCH (08:38)
[2017-01-23] MEDS: MAGNESIUM OXIDE 400 MG TABLET PO SCH (08:39)
[2017-01-23] MEDS: PANTOPRAZOLE 40MG PO SCH (08:39)
[2017-01-23] MEDS: ASCORBIC ACID 250 MG TABLET PO SCH (08:39)
[2017-01-23] MEDS: DICYCLOMINE HCL 20 MG TABLET PO SCH ×4 (08:39→20:03)
[2017-01-23] MEDS: LEVOTHYROXINE 100 MCG PO SCH (08:39)
[2017-01-23] MEDS: FERROUS SULFATE 325 MG TABEC PO SCH ×2 (08:39→20:03)
[2017-01-23] MEDS ORDERED: BUPRENORPHINE HCL 2 MG TAB.SUBL SL SCH (09:00)
[2017-01-23] MEDS ORDERED: LORAZEPAM 1 MG TABLET PO SCH (09:00)
[2017-01-23] MEDS: SUMATRIPTAN 100 MG PO PRN (12:14)
[2017-01-23] MEDS: METHOCARBAMOL 750 MG TABLET PO PRN (12:16)
[2017-01-23 13:04] VITALS: BP 93/60
[2017-01-23] MEDS ORDERED: METH-406 PO (15:19)
[2017-01-23] MEDS ORDERED: GABA-534 PO (15:19)
[2017-01-23] MEDS ORDERED: FERR325T28 PO (15:19)
[2017-01-23] MEDS ORDERED: DICY20TA28 PO (15:19)
[2017-01-23] MEDS ORDERED: ASCO250T5 PO (15:19)
[2017-01-23] MEDS ORDERED: DIPH50CA37 PO (15:19)
[2017-01-23] MEDS ORDERED: PRED20TA PO (15:19)
[2017-01-23] MEDS ORDERED: IBUP-1955 PO (15:19)
[2017-01-23] MEDS ORDERED: Magnesium Oxide PO (15:19)
[2017-01-23] MEDS ORDERED: ASPIRIN/ACETAMINOPHEN/CAFFEINE TABLET PO PRN (15:30)
[2017-01-23] MEDS ORDERED: SUMATRIPTAN SUCCINATE 50 MG TABLET PO ONE (15:30)
[2017-01-23 17:32] VITALS: BP 100/58
--- NOTE | 2017-01-23 19:08 | NUR ---
END OF SHIFT Patient alert and orientedx4, compliant with therapeutic plan of care, patient with admitting Dx: opiate/bzo dependence. Patient completed 5 day Ativan and 5 day Subutex taper as ordered. Patient 0900 assessment presented with: heart rate of: 93, mild bone and joint aches, stomach cramps, mild anxiety with cow score of: 4 and ciwa score of: 1; 1300 assessment patient presented with: heart rate of 95, mild bone and joint aches, stomach cramps , and mild anxiety with cow score of: 4; and ciwa score of: 1; 1700 assessment patient presented with: mild bone and joint aches, stomach cramps, and mild anxiety with cow score of:3 and ciwa score of: 1. Patient was encouraged adequate PO fluid intake as tolerated, noted with increase in appetite, encouraged adequate meal intake. Encouraged to attend group therapies/sessions to learn new coping skills to prevent relapse,noted attending and participating. denies any SI/HI. Patient received PRN: Robaxin, and Sumatriptan during shift. Patients safety measures in place. Call light kept with in reach. Endorsed to manufacturing shift supervisor nurse, all pertinent information discussed. Will continue to monitor.
--- NOTE | 2017-01-23 19:15 | NUR ---
Start of Shift Patient Received. Patient is in her room, awake, alert and verbally responsive. Breathing even and non labored. Patient is a 46 year old female that was admitted on 01/18/17 under the care of Dr. Youssef. Patient received 5 day Ativan and 5 day Subutex which as completed. Patient verbalizes allergies to Metoclopramide, wishes to be full code, following a regular diet, placed on fall and seizure precautions, and skin noted intact. 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 Patient is noted with a Port-a -Cath to the right upper chest with no access available. Per endorsement, patient is set for discharge tomorrow 01/24/17. Last noted COWS 3 and CIWA 1. All needs attended to promptly. Will continue plan of care as ordered.
[2017-01-23 20:01] VITALS: BP 98/58
[2017-01-23] MEDS: MIRTAZAPINE 15 MG TABLET PO SCH (20:03)
[2017-01-23] MEDS: HYDROXYZINE PAMOATE 25 MG CAPSULE PO PRN (20:03)
[2017-01-23] MEDS: AMITRIPTYLINE HCL 25 MG TABLET PO SCH (20:03)
--- NOTE | 2017-01-23 20:16 | NUR ---
PRN Medication Administration Patient is in bed awake, alert and verbally responsive. Breathing even and non labored. Patient is verbalizing increased anxiety. PRN Vistaril administered as per order. Will continue to monitor.
--- NOTE | 2017-01-23 21:20 | NUR ---
PRN Medication Reassessment Patient is in bed sleeping. Breathing even and non labored. No signs of pain or discomfort noted. PRN Vistaril administered for increased anxiety. Patient able to sleep well with no interruptions noted. PRN Medication noted to be effective. Will continue to monitor.
[2017-01-24 00:16] VITALS: BP 98/53
[2017-01-24 04:35] VITALS: BP 96/51
--- NOTE | 2017-01-24 07:04 | NUR ---
End of Shift Patient is in bed sleeping. Breathing even and non labored. Patient is a 46 year old female that was admitted on 01/18/17 under the care of Dr. Youssef. Patient received 5 day Ativan and 5 day Subutex which as completed. Allergies to Metoclopramide, Full Code, Regular Diet, placed on fall and seizure precautions, and skin noted intact. 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 Patient is noted with a Port-a -Cath to the right upper chest with no access available. Patient was given PRN Vistaril for increased anxiety with medication noted to be effective. Last noted COWS 4 and CIWA 4. All needs attended to promptly. Will endorse to continue plan of care as ordered.
--- NOTE | 2017-01-24 07:59 | NUR ---
BEGINNING OF SHIFT Patient endorsement report received from night shift manager nurse, all pertinent information discussed. Patient admitted on 01/18/2017, with admitting Dx: opiate/bzo dependence. Patient with past medical history of: Colon Resection on 11/16/2016, Crohns disease Disease, Depression, Migraine, Folic Acid Deficiency, Hypothyroidism, Thyroidectomy and Insomnia. Patient completed 5 day Ativan taper and 5 day Subutex taper as ordered, well tolerated, no ASE noted. Patient is currently scheduled to be discharged this morning, patient aware of current plan of care. Per night shift manager patient slept for 9 hours, with last cow score of: 4 and last ciwa score of: 4. Per night shift manager patient received PRN: Vistaril, medication effective as per night shift manager. Patient received awake, alert and oriented x4, safety measures in place. patient with port a cath on right upper chest with no access. Fall and seizure precautions observed and in place. Patient was educated regarding plan of care for the day and medication regimen with good verbal understanding, will educated regarding all discharge instructions. will continue to monitor closely.
[2017-01-24 08:09] VITALS: BP 100/70
[2017-01-24] MEDS: predniSONE 20 MG TABLET PO SCH (08:29)
[2017-01-24] MEDS: LEVOTHYROXINE 100 MCG PO SCH (08:29)
[2017-01-24] MEDS: FERROUS SULFATE 325 MG TABEC PO SCH (08:29)
[2017-01-24] MEDS: MAGNESIUM OXIDE 400 MG TABLET PO SCH (08:29)
[2017-01-24] MEDS: GABAPENTIN 300 MG CAPSULE PO SCH (08:29)
[2017-01-24] MEDS: FOLIC ACID 1 MG TABLET PO SCH (08:29)
[2017-01-24] MEDS: ASCORBIC ACID 250 MG TABLET PO SCH (08:29)
[2017-01-24] MEDS: PANTOPRAZOLE 40MG PO SCH (08:29)
[2017-01-24] MEDS: METHOCARBAMOL 750 MG TABLET PO PRN (08:30)
[2017-01-24] MEDS: SUMATRIPTAN 100 MG PO PRN (08:30)
[2017-01-24] MEDS: HYDROXYZINE PAMOATE 25 MG CAPSULE PO PRN (08:30)
--- NOTE | 2017-01-24 08:32 | NUR ---
PRN ROBAXIN/IMITREX/VISTARIL Patient c/o muscle aches /10, severe migraine / and increase anxiety. Provided patient with calming reassurance and non pharmacological interventions with no relief, administered Robaxin as ordered, sumatriptan as ordered and Vistaril as ordered, will monitor effectiveness of medication.
[2017-01-24] MEDS: DICYCLOMINE HCL 20 MG TABLET PO SCH ×2 (08:57→12:55)
--- NOTE | 2017-01-24 09:32 | NUR ---
ROBAXIN/IMITREX/VISTARIL REASSESSMENT Patient reports muscle aches decrease to 0/10, patient reports feeling less anxious. Patient reports Imitrex somewhat effective, but still feels migraine, provided with calm and quiet environment. non pharmacological interventions as needed. will continue to monitor.
--- NOTE | 2017-01-24 10:26 | NUR ---
ONE TIME DOSE IMITREX Patient continues to c/o severe migraine 11/25, notified Dr. Youssef with new orders for one time dose of 50mg sumatriptan, medication was administered as ordered, will continue to monitor closely.
[2017-01-24] MEDS ORDERED: SUMATRIPTAN SUCCINATE 50 MG TABLET PO ONE (10:30)
--- NOTE | 2017-01-24 13:40 | NUR ---
DISCHARGE Patient discharged off the unit at 1340, prior to discharge patient was provided with education and teaching regarding all discharge instructions with good verbal understanding. Patient noted self motivated towards sobriety. Patient discharged to [facility] in [place]. Patients vital signs WNL. no s/sx of withdrawal. Patients belongings, home medications, prescriptions and discharge instructions were placed in patients personal duffel bag. patient off the unit at 1340
[2017-01-30] MEDS ORDERED: MAGNESIUM OXIDE 400 MG TABLET PO ONE (15:00)
== END 2017-01-24 13:40 | DRG 895 ==
LOC: SRC 16:48
PROVIDERS: ADMIT Internal Medicine; ATTEND Internal Medicine
DX: F11.23 Opioid dependence with withdrawal (principal); D52.9 Folate deficiency anemia, unspecified; F33.1 Major depressive disorder, recurrent, moderate; E83.51 Hypocalcemia; E83.42 Hypomagnesemia; K50.90 Crohn's disease, unspecified, without complications; F13.230 Sedative, hypnotic or anxiolytic dependence with withdrawal, uncomplicated; Z90.49 Acquired absence of other specified parts of digestive tract; E89.0 Postprocedural hypothyroidism; Z86.018 Personal history of other benign neoplasm; G43.909 Migraine, unspecified, not intractable, without status migrainosus; G47.00 Insomnia, unspecified; Z87.891 Personal history of nicotine dependence; E87.6 Hypokalemia; D50.9 Iron deficiency anemia, unspecified; G89.29 Other chronic pain; Z79.899 Other long term (current) drug therapy
CPT/HCPCS: 36415; 70030-TC; 80307; 80346; 80361; 82306; 82746; 83550; 83735; 84443; 84703; 85025; 86140; 86580; 86592; 86625; 86705; 86803; 87046; 87177; 87340; 87806; 89055; A4663; G0480; J0500; J7512; Q0162